=== PATIENT | male | born 1975 | race Caucasian/White ===

== ENCOUNTER 2022-03-31 14:55 | Observation (INO) | payer OTHER, SELFPAY ==
--- NOTE | 2022-03-31 | DI.ECHO.S_ITS ---
[facility] +---------+ : : [address] : [place] : : : : [id number] : : : : Phone: [phone]---------+ Echocardiogram Report + + :Name: ZHANG CRUZ Study Date: 04/01/2022 Height: 71 in : :[facility] ReadingLocation: Weight: 285 lb: : Gender: Male BSA: 2.5 m2 : :: 1975 Age: 46 yrs : :Reason For Study: Chest pain : :Ordering Physician: ROZ, : :SAMSON Performed By: Travis Bennett : :Referring: SAMSON COURTNEY : + + Interpretation Summary The ejection fraction is estimated to be 55-60%. Diastolic parameters suggest probable normal left ventricular diastolic function and normal filling pressures. The right ventricle is normal in size and function. No significant valvular abnormalities. Unable to estimate PASP. The ascending aorta is mildly enlarged. Procedure: A two-dimensional transthoracic echocardiogram with color flow and Doppler was performed. The study quality was technically adequate. There is no prior echocardiogram noted for this patient. The patient was in normal sinus rhythm during the exam. Left Ventricle: The left ventricle is normal in size and wall thickness. Left ventricular systolic function is normal. The ejection fraction is estimated to be 55-60%. There are no focal wall motion abnormalities. Diastolic parameters suggest probable normal left ventricular diastolic function and normal filling pressures. Right Ventricle: The right ventricle is normal in size and function. Atria: Both atria are normal in size. The interatrial septum grossly appears intact with no obvious evidence for an atrial septal defect. Mitral Valve: The mitral valve is normal in structure and function. There is no mitral regurgitation noted. Aortic Valve: The aortic valve is trileaflet. There is no aortic valve stenosis. No aortic regurgitation is present. Tricuspid Valve: The tricuspid valve is normal in structure and function. No tricuspid regurgitation. Pulmonary artery pressures cannot be estimated because of the lack of a measurable TR jet velocity. Pulmonic Valve: The pulmonic valve is normal in structure and function. There is no pulmonic valvular regurgitation. Great Vessels: The aortic root is normal size. The ascending aorta is mildly enlarged. The IVC is of normal diameter and collapses less than 50% with a sniff. This suggests a right atrial pressure of 8 mm Hg. Pericardium/ Pleura There is no pericardial effusion. There is no pleural effusion. MMode/2D Measurements & Calculations LVIDd: 5.2 cm LVOT diam: 2.5 cm LVIDs: 3.6 cm Ao root diam: 3.7 cm FS: 31.2 % asc Aorta Diam: 3.9 cm IVSd: 1.1 cm LVPWd: 0.85 cm LV fulton. diameter/BSA (cm/m^2): 2.1 LV sys. diameter/BSA (cm/m^2): 1.4 LA A2 area: 20.0 cm2 RA long axis: 5.5 cm LA A4 area: 17.8 cm2 RA area: 12.1 cm2 LA length (vol): 5.1 cm RA vol: 22.6 ml LA vol: 58.8 ml RA : 9.2 ml/m2 LA vol index: 24.0 ml/m2 TAPSE: 1.9 cm Doppler Measurements & Calculations Ao V2 max: 117.8 cm/sec LVOT Max Hao: 93.9 cm/sec Ao V2 mean: 84.5 cm/sec LV V1 max P.5 mmHg Ao max P.6 mmHg LV V1 VTI: 16.3 cm Ao mean P.1 mmHg ERIN(I,D): 3.6 cm2 Ao V2 VTI: 21.2 cm ERIN(V,D): 3.8 cm2 sev ratio: 0.77 ERIN indexed to BSA (cm^2/m^2): 1.5 MV E max hao: 69.9 cm/sec SV(LVOT): 77.2 ml MV A max hao: 59.5 cm/sec MV E/A: 1.2 Med Peak E' Hao: 8.8 cm/sec E/E' med: 8.0 Lat Peak E' Hao: 11.7 cm/sec E/E' lat: 6.0 E/e' average: 7.0 MV dec time: 0.19 sec Reading Physician:12:00 PM
[2022-03-31 15:06] VITALS: BP 147/89; PULSE 119; RESP 20; TEMP 36.5; O2SAT 95
--- NOTE | 2022-03-31 15:09 | DI.RAD.S_ITS ---
PROCEDURE: XR CHEST 1V INDICATIONS: chest pain TECHNIQUE: One view of the chest was acquired. COMPARISON: None. FINDINGS: Surgical changes and devices: None. Lungs and pleura: There are questionable pulmonary radiopacities in the right lower lung versus vascular crowding. The lungs are otherwise clear. No pleural effusion or pneumothorax. Mediastinum: Mediastinal contours appear normal. Heart size is normal. Bones and chest wall: No suspicious bony lesions. Overlying soft tissues appear unremarkable. IMPRESSION: Questionable right basilar radiopacities. Lateral view could be used to further characterize findings. Dictated by: Khushi Frank M.D. on 03/31/2022 at 15:35 Approved by: Khushi Frank M.D. on 03/31/2022 at 15:35
[2022-03-31 15:30] LABS: Add Manual Diff / Slide Review NO; Basophils Absolute Auto 0 /uL (0-100); Basophils Percent Auto 0.7 % (0-2); Eosinophils Absolute Auto 100 /uL (0-450); Eosinophils Percent Auto 2.1 % (2-4); Hematocrit 44.5 % (41-53); Hemoglobin 15.7 g/dL (13.5-17.5); Lymphocytes Absolute Auto 1400 /uL (1100-4500); Lymphocytes Percent Auto 26.6 % (25-40); Mean Corpuscular HGB Conc 35.2 % (30-36); Mean Corpuscular Hemoglobin 32.3 PG (26-34); Mean Corpuscular Volume 91.7 fL (80-100); Monocytes Absolute Auto 600 /uL (0-900); Monocytes Percent Auto 10.4 % (3-14); Neutrophils Absolute Auto 3200 /uL (1500-7000); Neutrophils Percent Auto 60.2 % (50-75); Platelet Count 115 X10^3/uL (150-400); Red Blood Cell Count 4.85 X10^6/uL (4.5-5.9); Red Cell Distribution Width 12.9 % (11.6-14.8); White Blood Cell Count 5.3 X10^3/uL (4.5-11.0)
[2022-03-31 16:46] LABS: Alanine Aminotransferase 40 IU/L (<50); Albumin 4.1 g/dL (3.5-5.0); Albumin Globulin Ratio 1.1 (1.0-2.8); Alkaline Phosphatase 145 U/L (38-126); Aspartate Aminotransferase 58 IU/L (17-59); Bilirubin Total 0.6 mg/dL (0.2-1.3); Blood Urea Nitrogen 19 mg/dL (9-20); Calcium 8.5 mg/dL (8.4-10.2); Carbon Dioxide 26 mmol/L (22-32); Chloride 101 mmol/L (98-107); Creatine Kinase 255 U/L (55-170); Estimated Glomerular Filt Rate > 60 mL/min (>60); Globulin 3.6 g/dL (1.7-4.1); Glucose 109 mg/dL (70-100); HEMOLYSIS 21 (0-50); Lipase 102 U/L (23-300); Magnesium 1.7 mg/dL (1.6-2.3); Sodium 135 mmol/L (137-145); Total Protein 7.7 g/dL (6.3-8.2)
[2022-03-31 16:51] LABS: Troponin I < 0.012 ng/mL (0.01-0.034)
[2022-03-31 17:00] LABS: NT-proBNP (BNP-Adult 18+) 55 pg/mL (<125)
[2022-03-31 17:01] LABS: CKMB % Relative Index 0.8 % (1.5-5.0)
[2022-03-31 17:03] VITALS: BP 141/97; PULSE 79; RESP 18; O2SAT 94
[2022-03-31 17:17] LABS: COVID19 -Nasal RAPID Negative (Negative)
[2022-03-31 18:26] LABS: Troponin I < 0.012 ng/mL (0.01-0.034)
[2022-03-31 19:02] LABS: Appearance Urine UA CLEAR; Bilirubin Urine UA NEGATIVE (NEGATIVE); Color Urine UA YELLOW; Glucose Urine UA NEGATIVE (Negative); Ketones Urine UA NEGATIVE (NEGATIVE); Leukocyte Esterase Urine UA NEGATIVE (NEGATIVE); Nitrite Urine UA NEGATIVE (Negative); Occult Blood Urine UA NEGATIVE (Negative); Protein Urine UA NEGATIVE (Negative); Urobilinogen Urine UA 0.2 E.U./dL (0.2); pH Urine UA 6.5 (4.5-8.0)
[2022-03-31 19:04] LABS: UR Morphine/Opiate cutoff 300 Negative (Negative); Ur Creatinine Normal (Normal); Ur Specific Gravity Normal (Normal); Urine Amphetamines Negative (Negative); Urine Barbiturates Negative (Negative); Urine Benzodiazepines Negative (Negative); Urine Cocaine Negative (Negative); Urine MDMA Negative (Negative); Urine Methadone Negative (Negative); Urine Methamphetamines Negative (Negative); Urine Oxycodone Negative (Negative); Urine Phencyclidine Negative (Negative); Urine Tetrahydrocannabinol Negative (Negative); Urine Tricyclic Antidepressant Negative (Negative); Urine pH Normal (Normal)
--- NOTE | 2022-03-31 19:10 | ED.CHESTPAIN ---
HPI - Chest Pain <Joel Paul MD - Last Filed: 04/01/22 06:21> General Chief Complaint: Chest Pain Stated Complaint: LIGHT HEADED SOB Time Seen by Provider: 03/31/22 16:33 Source: patient Mode of arrival: Ambulatory History of Present Illness HPI narrative: Patient here for a 2 hour episode of substernal pressure chest pain with sweating and nausea and shortness of breath at 1:30 a.m. today. Currently symptom-free. Patient states in the past year he is had 10 episodes of the same complaint but today was worse. He has never seen any provider for this. Never had cardiac workup. Episode today occurred while at rest. No recent illness. Related Data Home Medications Medication Instructions Recorded Confirmed telmisartan 40 mg tablet 40 mg PO DAILY 03/31/22 03/31/22 Previous Rx's Medication Instructions Recorded metoprolol succinate 25 mg 25 mg PO DAILY 30 days #30 tabs 04/01/22 tablet,extended release 24 hr Allergies Allergy/AdvReac Type Severity Reaction Status Date / Time No Known Drug Allergies Allergy Verified 03/31/22 15:08 Review of Systems <Joel Paul MD - Last Filed: 04/01/22 06:21> Review of Systems Narrative: GENERAL: Denies chills, fatigue, malaise, fever, sweats. HEENT: Denies sinus pain, ear pain, sore throat RESPIRATORY: Positive for dyspnea, negative for cough CARDIOVASCULAR: Positive for chest pain, negative for palpitations GASTROINTESTINAL: Positive for nausea, negative for vomiting, abdominal pain : Denies dysuria, frequency, hematuria MUSCULOSKELETAL: denies muscle or bony pain SKIN: Denies rash, skin lesions NEUROLOGIC: Denies weakness, numbness ROS Unobtainable: All systems reviewed & are unremarkable except as noted in HPI and below Patient History <Joel Paul MD - Last Filed: 04/01/22 06:21> Medical History Essential hypertension Surgical History No history of previous surgery Family History Mother Hypertension Father Diabetes type 2, uncontrolled Social History household members: spouse Smoking Status: Former smoker alcohol intake: current Smoking Status: Never smoker alcohol intake frequency: 3 or more drinks per day Exam <Joel Paul MD - Last Filed: 04/01/22 06:21> Narrative Exam Narrative: GENERAL: in no distress, not toxic not dyspneic HEAD: Normocephalic. EYES: Pupils equal round No scleral icterus. ENT: Mucous membranes moist. NECK: Trachea midline. CARDIOVASCULAR: Regular rate and rhythm without murmurs RESPIRATORY: Clear to auscultation. Breath sounds equal bilaterally. No wheezes, rales, or rhonchi. GASTROINTESTINAL: Abdomen soft, non-tender EXTREMITIES: No gross deformities. BACK: No flank tenderness. NEURO: AOx4. SKIN: Warm and dry PSYCH: Not anxious, is cooperative Initial Vital Signs Initial Vital Signs: Vital Signs Temperature 97.7 F 03/31/22 15:06 Pulse Rate 119 H 03/31/22 15:06 Respiratory Rate 20 03/31/22 15:06 Blood Pressure 147/89 H 03/31/22 15:06 Pulse Oximetry 95 03/31/22 15:06 Oxygen Delivery Method 03/31/22 15:06 <CONRAD Vallejo - Last Filed: 04/01/22 23:34> Initial Vital Signs Initial Vital Signs: Vital Signs Temperature 97.7 F 03/31/22 15:06 Pulse Rate 119 H 03/31/22 15:06 Respiratory Rate 20 03/31/22 15:06 Blood Pressure 147/89 H 03/31/22 15:06 Pulse Oximetry 95 03/31/22 15:06 Oxygen Delivery Method 03/31/22 15:06 Course <Joel Paul MD - Last Filed: 04/01/22 06:21> Course Course Narrative: Chest pain-free during course of stay Decision to Admit Date: 03/31/22 Decision to Admit time: 19:12 Orders Ordered: Discontinued Medications Acetaminophen (Acetaminophen 325 Mg Tablet) 650 mg PO Q6HR PRN PRN Reason: Fever/Mild Pain (1-3) Aspirin (Aspirin Ec 81 Mg Tablet) 324 mg PO NOW ONE Stop: 03/31/22 19:13 Last Admin: 03/31/22 19:16 Dose: 324 mg Documented By: ILDA Aspirin (Aspirin Ec 81 Mg Tablet) 81 mg PO DAILY [facility] Last Admin: 04/01/22 09:43 Dose: 81 mg Documented By: LOLITA Atorvastatin Calcium (Atorvastatin 20 Mg Tablet) 40 mg PO BEDTIME [facility] Enoxaparin Sodium (Enoxaparin 40 Mg/0.4 Ml Syringe) 40 mg SUBCUT DAILY [facility] Last Admin: 04/01/22 09:44 Dose: 40 mg Documented By: LOLITA Enoxaparin Sodium (Enoxaparin 40 Mg/0.4 Ml Syringe) 40 mg SUBCUT BID [facility] Morphine Sulfate (Morphine 2 Mg/Ml Inj) 2 mg IV Q5MIN PRN PRN Reason: Chest Pain Nitroglycerin (Nitroglycerin 0.4 Mg Sl Tab) 0.4 mg SL [id number] PRN PRN Reason: Chest Pain Ondansetron HCl (Ondansetron 4 Mg/2 Ml Inj) 4 mg IV Q8HR PRN PRN Reason: Nausea And Vomiting Potassium Chloride (Potassium Chloride 20 Meq Tab) 40 meq PO NOW ONE Stop: 04/01/22 10:01 Last Admin: 04/01/22 09:43 Dose: 40 meq Documented By: LOLITA Sodium Chloride (Sodium Chloride 0.9% Flush) 10 ml IV BID [facility] Last Admin: 04/01/22 09:44 Dose: 10 ml Documented By: LOLITA Reevaluation(s) Reevaluation #1: Chest pain-free at this time. Patient does agree for overnight stay and treadmill stress test echocardiogram in the morning Time: 19:13 Consultations Consultation #1: Spoke with Dr. Andre, cardiology. Recommends admission for treadmill stress test or nuclear stress test Time: 19:30 Consultation #2: Spoke with hospitalistRoselia, will admit for nuclear stress test Time: 19:57 Vital Signs Vital signs: Vital Signs - 8 hr 03/31/22 19:21 Pulse Rate 102 H Respiratory Rate 18 Blood Pressure 109/52 L Pulse Oximetry 97 Oxygen Delivery Method Room Air <CONRAD Vallejo - Last Filed: 04/01/22 23:34> Orders Ordered: Discontinued Medications Acetaminophen (Acetaminophen 325 Mg Tablet) 650 mg PO Q6HR PRN PRN Reason: Fever/Mild Pain (1-3) Aspirin (Aspirin Ec 81 Mg Tablet) 324 mg PO NOW ONE Stop: 03/31/22 19:13 Last Admin: 03/31/22 19:16 Dose: 324 mg Documented By: LIDA Aspirin (Aspirin Ec 81 Mg Tablet) 81 mg PO DAILY [facility] Last Admin: 04/01/22 09:43 Dose: 81 mg Documented By: LOLITA Atorvastatin Calcium (Atorvastatin 20 Mg Tablet) 40 mg PO BEDTIME [facility] Enoxaparin Sodium (Enoxaparin 40 Mg/0.4 Ml Syringe) 40 mg SUBCUT DAILY [facility] Last Admin: 04/01/22 09:44 Dose: 40 mg Documented By: LOLITA Enoxaparin Sodium (Enoxaparin 40 Mg/0.4 Ml Syringe) 40 mg SUBCUT BID [facility] Morphine Sulfate (Morphine 2 Mg/Ml Inj) 2 mg IV Q5MIN PRN PRN Reason: Chest Pain Nitroglycerin (Nitroglycerin 0.4 Mg Sl Tab) 0.4 mg SL [id number] PRN PRN Reason: Chest Pain Ondansetron HCl (Ondansetron 4 Mg/2 Ml Inj) 4 mg IV Q8HR PRN PRN Reason: Nausea And Vomiting Potassium Chloride (Potassium Chloride 20 Meq Tab) 40 meq PO NOW ONE Stop: 04/01/22 10:01 Last Admin: 04/01/22 09:43 Dose: 40 meq Documented By: LOLITA Sodium Chloride (Sodium Chloride 0.9% Flush) 10 ml IV BID [facility] Last Admin: 04/01/22 09:44 Dose: 10 ml Documented By: LOLITA Vital Signs Vital signs: Vital Signs - 8 hr 03/31/22 19:21 Pulse Rate 102 H Respiratory Rate 18 Blood Pressure 109/52 L Pulse Oximetry 97 Oxygen Delivery Method Room Air MDM - Chest Pain <Joel Paul MD - Last Filed: 04/01/22 06:21> Differential Diagnosis Differential diagnosis: Likely pneumothorax, stable angina, unstable angina pectoris, atypical chest pain, st elevation myocardial infarction and chest pain Lab Data Result diagrams: 04/01/22 03:08 04/01/22 03:08 Labs: Lab Results 03/31/22 03/31/22 03/31/22 Range/Units 15:21 15:21 15:21 WBC 5.3 (4.5-11.0) X10^3/uL RBC 4.85 (4.5-5.9) X10^6/uL Hgb 15.7 (13.5-17.5) g/dL Hct 44.5 (41-53) % MCV 91.7 (80-100) fL MCH 32.3 (26-34) PG MCHC 35.2 (30-36) % RDW 12.9 (11.6-14.8) % Plt Count 115 L (150-400) X10^3/uL Neut % (Auto) 60.2 (50-75) % Lymph % (Auto) 26.6 (25-40) % Russell % (Auto) 10.4 (3-14) % Eos % (Auto) 2.1 (2-4) % Baso % (Auto) 0.7 (0-2) % Neut # (Auto) 3200 (6121-8056) /uL Lymph # (Auto) 1400 (8997-1384) /uL Russell # (Auto) 600 (0-900) /uL Eos # (Auto) 100 (0-450) /uL Baso # (Auto) 0 (0-100) /uL Sodium 135 L (137-145) mmol/L Potassium 4.0 (3.4-5.1) mmol/L Chloride 101 (98-107) mmol/L Carbon Dioxide 26 (22-32) mmol/L BUN 19 (9-20) mg/dL Creatinine 0.95 (0.66-1.25) mg/dL Estimated GFR > 60 (>60) mL/min BUN/Creatinine Ratio 20.0 (6-22) Glucose 109 H (70-100) mg/dL Hemoglobin A1c (4.0-6.0) % Calcium 8.5 (8.4-10.2) mg/dL Magnesium 1.7 (1.6-2.3) mg/dL Total Bilirubin 0.6 (0.2-1.3) mg/dL AST 58 (17-59) IU/L ALT 40 (<50) IU/L Alkaline Phosphatase 145 H (38-126) U/L Total Creatine Kinase 255 H (55-170) U/L CK-MB (CK-2) 2.10 (<2.37) ng/mL CK-MB (CK-2) Rel Index 0.8 L (1.5-5.0) % Troponin I < 0.012 (0.01-0.034) ng/mL NT-Pro-B Natriuret Pep 55 (<125) pg/mL Total Protein 7.7 (6.3-8.2) g/dL Albumin 4.1 (3.5-5.0) g/dL Globulin 3.6 (1.7-4.1) g/dL Albumin/Globulin Ratio 1.1 (1.0-2.8) Lipase 102 (23-300) U/L Urine Color Urine Appearance Urine pH (4.5-8.0) Ur Specific [place] (1.000-1.035) Urine Protein (Negative) Urine Glucose (UA) (Negative) g/dL Urine Ketones (NEGATIVE) Urine Occult Blood (Negative) Urine Nitrate (Negative) Urine Bilirubin (NEGATIVE) Urine Urobilinogen (0.2) E.U./dL Ur Leukocyte Esterase (NEGATIVE) Urine RBC (0-5/HPF) Urine WBC (0-5/HPF) Urine Bacteria (None) Ur Culture Indicated? U Opiates 300ng/mL cut (Negative) Ur Oxycodone Screen (Negative) Urine Methadone Screen (Negative) Ur Barbiturates Screen (Negative) U Tricyclic Antidepress (Negative) Ur Phencyclidine Scrn (Negative) Ur Amphetamines Screen (Negative) U Methamphetamines Scrn (Negative) Ur MDMA Scrn (Ecstasy) (Negative) U Benzodiazepines Scrn (Negative) Urine Cocaine Screen (Negative) U Marijuana (THC) Screen (Negative) SARS-CoV-2 (PCR) (Negative) 03/31/22 03/31/22 03/31/22 Range/Units 15:21 16:49 17:30 WBC (4.5-11.0) X10^3/uL RBC (4.5-5.9) X10^6/uL Hgb (13.5-17.5) g/dL Hct (41-53) % MCV (80-100) fL MCH (26-34) PG MCHC (30-36) % RDW (11.6-14.8) % Plt Count (150-400) X10^3/uL Neut % (Auto) (50-75) % Lymph % (Auto) (25-40) % Russell % (Auto) (3-14) % Eos % (Auto) (2-4) % Baso % (Auto) (0-2) % Neut # (Auto) (5111-6630) /uL Lymph # (Auto) (1911-1498) /uL Russell # (Auto) (0-900) /uL Eos # (Auto) (0-450) /uL Baso # (Auto) (0-100) /uL Sodium (137-145) mmol/L Potassium (3.4-5.1) mmol/L Chloride (98-107) mmol/L Carbon Dioxide (22-32) mmol/L BUN (9-20) mg/dL Creatinine (0.66-1.25) mg/dL Estimated GFR (>60) mL/min BUN/Creatinine Ratio (6-22) Glucose (70-100) mg/dL Hemoglobin A1c 5.9 (4.0-6.0) % Calcium (8.4-10.2) mg/dL Magnesium (1.6-2.3) mg/dL Total Bilirubin (0.2-1.3) mg/dL AST (17-59) IU/L ALT (<50) IU/L Alkaline Phosphatase (38-126) U/L Total Creatine Kinase (55-170) U/L CK-MB (CK-2) (<2.37) ng/mL CK-MB (CK-2) Rel Index (1.5-5.0) % Troponin I < 0.012 (0.01-0.034) ng/mL NT-Pro-B Natriuret Pep (<125) pg/mL Total Protein (6.3-8.2) g/dL Albumin (3.5-5.0) g/dL Globulin (1.7-4.1) g/dL Albumin/Globulin Ratio (1.0-2.8) Lipase (23-300) U/L Urine Color Urine Appearance Urine pH (4.5-8.0) Ur Specific [place] (1.000-1.035) Urine Protein (Negative) Urine Glucose (UA) (Negative) g/dL Urine Ketones (NEGATIVE) Urine Occult Blood (Negative) Urine Nitrate (Negative) Urine Bilirubin (NEGATIVE) Urine Urobilinogen (0.2) E.U./dL Ur Leukocyte Esterase (NEGATIVE) Urine RBC (0-5/HPF) Urine WBC (0-5/HPF) Urine Bacteria (None) Ur Culture Indicated? U Opiates 300ng/mL cut (Negative) Ur Oxycodone Screen (Negative) Urine Methadone Screen (Negative) Ur Barbiturates Screen (Negative) U Tricyclic Antidepress (Negative) Ur Phencyclidine Scrn (Negative) Ur Amphetamines Screen (Negative) U Methamphetamines Scrn (Negative) Ur MDMA Scrn (Ecstasy) (Negative) U Benzodiazepines Scrn (Negative) Urine Cocaine Screen (Negative) U Marijuana (THC) Screen (Negative) SARS-CoV-2 (PCR) Negative (Negative) 03/31/22 03/31/22 Range/Units 18:50 18:50 WBC (4.5-11.0) X10^3/uL RBC (4.5-5.9) X10^6/uL Hgb (13.5-17.5) g/dL Hct (41-53) % MCV (80-100) fL MCH (26-34) PG MCHC (30-36) % RDW (11.6-14.8) % Plt Count (150-400) X10^3/uL Neut % (Auto) (50-75) % Lymph % (Auto) (25-40) % Russell % (Auto) (3-14) % Eos % (Auto) (2-4) % Baso % (Auto) (0-2) % Neut # (Auto) (5570-9872) /uL Lymph # (Auto) (7691-5289) /uL Russell # (Auto) (0-900) /uL Eos # (Auto) (0-450) /uL Baso # (Auto) (0-100) /uL Sodium (137-145) mmol/L Potassium (3.4-5.1) mmol/L Chloride (98-107) mmol/L Carbon Dioxide (22-32) mmol/L BUN (9-20) mg/dL Creatinine (0.66-1.25) mg/dL Estimated GFR (>60) mL/min BUN/Creatinine Ratio (6-22) Glucose (70-100) mg/dL Hemoglobin A1c (4.0-6.0) % Calcium (8.4-10.2) mg/dL Magnesium (1.6-2.3) mg/dL Total Bilirubin (0.2-1.3) mg/dL AST (17-59) IU/L ALT (<50) IU/L Alkaline Phosphatase (38-126) U/L Total Creatine Kinase (55-170) U/L CK-MB (CK-2) (<2.37) ng/mL CK-MB (CK-2) Rel Index (1.5-5.0) % Troponin I (0.01-0.034) ng/mL NT-Pro-B Natriuret Pep (<125) pg/mL Total Protein (6.3-8.2) g/dL Albumin (3.5-5.0) g/dL Globulin (1.7-4.1) g/dL Albumin/Globulin Ratio (1.0-2.8) Lipase (23-300) U/L Urine Color Yellow Urine Appearance Clear Urine pH 6.5 (4.5-8.0) Ur Specific [place] 1.020 (1.000-1.035) Urine Protein Negative (Negative) Urine Glucose (UA) Negative (Negative) g/dL Urine Ketones Negative (NEGATIVE) Urine Occult Blood Negative (Negative) Urine Nitrate Negative (Negative) Urine Bilirubin Negative (NEGATIVE) Urine Urobilinogen 0.2 (0.2) E.U./dL Ur Leukocyte Esterase Negative (NEGATIVE) Urine RBC None seen (0-5/HPF) Urine WBC None seen (0-5/HPF) Urine Bacteria None seen (None) Ur Culture Indicated? Cult not indicated U Opiates 300ng/mL cut Negative (Negative) Ur Oxycodone Screen Negative (Negative) Urine Methadone Screen Negative (Negative) Ur Barbiturates Screen Negative (Negative) U Tricyclic Antidepress Negative (Negative) Ur Phencyclidine Scrn Negative (Negative) Ur Amphetamines Screen Negative (Negative) U Methamphetamines Scrn Negative (Negative) Ur MDMA Scrn (Ecstasy) Negative (Negative) U Benzodiazepines Scrn Negative (Negative) Urine Cocaine Screen Negative (Negative) U Marijuana (THC) Screen Negative (Negative) SARS-CoV-2 (PCR) (Negative) Imaging Data Chest x-ray: Radiologist's Impression: [address] [address] XRay Report Signed Patient: Roberto Perla MR#: [id number] : 1975 Acct:[id number] Age/Sex: 46 / M Date of Service: 03/31/22 Loc: ED Accession Number: [id number] ?? Procedure: XR chest 1V Ordering Provider: Carmelita Irvin D.O. PROCEDURE:? XR CHEST 1V ? INDICATIONS:? chest pain ? TECHNIQUE:? One view of the chest was acquired.? ? COMPARISON:? None. ? FINDINGS:? ? Surgical changes and devices:? None.? ? Lungs and pleura:? There are questionable pulmonary radiopacities in the right lower lung versus vascular crowding.? The lungs are otherwise clear.? No pleural effusion or pneumothorax. ? Mediastinum:? Mediastinal contours appear normal.? Heart size is normal.? ? Bones and chest wall:? No suspicious bony lesions.? Overlying soft tissues appear unremarkable.? ? IMPRESSION:? Questionable right basilar radiopacities.? Lateral view could be used to further characterize findings. ? ? Dictated by: Khushi Frank M.D. on 03/31/2022 at 15:35 ? ? Approved by: Khushi Frank M.D. on 03/31/2022 at 15:35 ? ECG Data Interpretation: Sinus tachycardia rate 113. No ST elevation. MDM Narrative Medical decision making narrative: Appropriate for admission patient needs treadmill stress test echocardiogram. Tenth episode in 1 year. This occurred at rest. Had worsening symptoms today. Currently chest pain-free not tachycardic. <CONRAD Vallejo - Last Filed: 04/01/22 23:34> Lab Data Labs: Lab Results 03/31/22 03/31/22 03/31/22 Range/Units 15:21 15:21 15:21 WBC 5.3 (4.5-11.0) X10^3/uL RBC 4.85 (4.5-5.9) X10^6/uL Hgb 15.7 (13.5-17.5) g/dL Hct 44.5 (41-53) % MCV 91.7 (80-100) fL MCH 32.3 (26-34) PG MCHC 35.2 (30-36) % RDW 12.9 (11.6-14.8) % Plt Count 115 L (150-400) X10^3/uL Neut % (Auto) 60.2 (50-75) % Lymph % (Auto) 26.6 (25-40) % Russell % (Auto) 10.4 (3-14) % Eos % (Auto) 2.1 (2-4) % Baso % (Auto) 0.7 (0-2) % Neut # (Auto) 3200 (9625-2588) /uL Lymph # (Auto) 1400 (8728-8905) /uL Russell # (Auto) 600 (0-900) /uL Eos # (Auto) 100 (0-450) /uL Baso # (Auto) 0 (0-100) /uL Sodium 135 L (137-145) mmol/L Potassium 4.0 (3.4-5.1) mmol/L Chloride 101 (98-107) mmol/L Carbon Dioxide 26 (22-32) mmol/L BUN 19 (9-20) mg/dL Creatinine 0.95 (0.66-1.25) mg/dL Estimated GFR > 60 (>60) mL/min BUN/Creatinine Ratio 20.0 (6-22) Glucose 109 H (70-100) mg/dL Hemoglobin A1c (4.0-6.0) % Calcium 8.5 (8.4-10.2) mg/dL Magnesium 1.7 (1.6-2.3) mg/dL Total Bilirubin 0.6 (0.2-1.3) mg/dL AST 58 (17-59) IU/L ALT 40 (<50) IU/L Alkaline Phosphatase 145 H (38-126) U/L Total Creatine Kinase 255 H (55-170) U/L CK-MB (CK-2) 2.10 (<2.37) ng/mL CK-MB (CK-2) Rel Index 0.8 L (1.5-5.0) % Troponin I < 0.012 (0.01-0.034) ng/mL NT-Pro-B Natriuret Pep 55 (<125) pg/mL Total Protein 7.7 (6.3-8.2) g/dL Albumin 4.1 (3.5-5.0) g/dL Globulin 3.6 (1.7-4.1) g/dL Albumin/Globulin Ratio 1.1 (1.0-2.8) Lipase 102 (23-300) U/L Urine Color Urine Appearance Urine pH (4.5-8.0) Ur Specific [place] (1.000-1.035) Urine Protein (Negative) Urine Glucose (UA) (Negative) g/dL Urine Ketones (NEGATIVE) Urine Occult Blood (Negative) Urine Nitrate (Negative) Urine Bilirubin (NEGATIVE) Urine Urobilinogen (0.2) E.U./dL Ur Leukocyte Esterase (NEGATIVE) Urine RBC (0-5/HPF) Urine WBC (0-5/HPF) Urine Bacteria (None) Ur Culture Indicated? U Opiates 300ng/mL cut (Negative) Ur Oxycodone Screen (Negative) Urine Methadone Screen (Negative) Ur Barbiturates Screen (Negative) U Tricyclic Antidepress (Negative) Ur Phencyclidine Scrn (Negative) Ur Amphetamines Screen (Negative) U Methamphetamines Scrn (Negative) Ur MDMA Scrn (Ecstasy) (Negative) U Benzodiazepines Scrn (Negative) Urine Cocaine Screen (Negative) U Marijuana (THC) Screen (Negative) SARS-CoV-2 (PCR) (Negative) 03/31/22 03/31/22 03/31/22 Range/Units 15:21 16:49 17:30 WBC (4.5-11.0) X10^3/uL RBC (4.5-5.9) X10^6/uL Hgb (13.5-17.5) g/dL Hct (41-53) % MCV (80-100) fL MCH (26-34) PG MCHC (30-36) % RDW (11.6-14.8) % Plt Count (150-400) X10^3/uL Neut % (Auto) (50-75) % Lymph % (Auto) (25-40) % Russell % (Auto) (3-14) % Eos % (Auto) (2-4) % Baso % (Auto) (0-2) % Neut # (Auto) (1315-4648) /uL Lymph # (Auto) (6959-9129) /uL Russell # (Auto) (0-900) /uL Eos # (Auto) (0-450) /uL Baso # (Auto) (0-100) /uL Sodium (137-145) mmol/L Potassium (3.4-5.1) mmol/L Chloride (98-107) mmol/L Carbon Dioxide (22-32) mmol/L BUN (9-20) mg/dL Creatinine (0.66-1.25) mg/dL Estimated GFR (>60) mL/min BUN/Creatinine Ratio (6-22) Glucose (70-100) mg/dL Hemoglobin A1c 5.9 (4.0-6.0) % Calcium (8.4-10.2) mg/dL Magnesium (1.6-2.3) mg/dL Total Bilirubin (0.2-1.3) mg/dL AST (17-59) IU/L ALT (<50) IU/L Alkaline Phosphatase (38-126) U/L Total Creatine Kinase (55-170) U/L CK-MB (CK-2) (<2.37) ng/mL CK-MB (CK-2) Rel Index (1.5-5.0) % Troponin I < 0.012 (0.01-0.034) ng/mL NT-Pro-B Natriuret Pep (<125) pg/mL Total Protein (6.3-8.2) g/dL Albumin (3.5-5.0) g/dL Globulin (1.7-4.1) g/dL Albumin/Globulin Ratio (1.0-2.8) Lipase (23-300) U/L Urine Color Urine Appearance Urine pH (4.5-8.0) Ur Specific [place] (1.000-1.035) Urine Protein (Negative) Urine Glucose (UA) (Negative) g/dL Urine Ketones (NEGATIVE) Urine Occult Blood (Negative) Urine Nitrate (Negative) Urine Bilirubin (NEGATIVE) Urine Urobilinogen (0.2) E.U./dL Ur Leukocyte Esterase (NEGATIVE) Urine RBC (0-5/HPF) Urine WBC (0-5/HPF) Urine Bacteria (None) Ur Culture Indicated? U Opiates 300ng/mL cut (Negative) Ur Oxycodone Screen (Negative) Urine Methadone Screen (Negative) Ur Barbiturates Screen (Negative) U Tricyclic Antidepress (Negative) Ur Phencyclidine Scrn (Negative) Ur Amphetamines Screen (Negative) U Methamphetamines Scrn (Negative) Ur MDMA Scrn (Ecstasy) (Negative) U Benzodiazepines Scrn (Negative) Urine Cocaine Screen (Negative) U Marijuana (THC) Screen (Negative) SARS-CoV-2 (PCR) Negative (Negative) 03/31/22 03/31/22 Range/Units 18:50 18:50 WBC (4.5-11.0) X10^3/uL RBC (4.5-5.9) X10^6/uL Hgb (13.5-17.5) g/dL Hct (41-53) % MCV (80-100) fL MCH (26-34) PG MCHC (30-36) % RDW (11.6-14.8) % Plt Count (150-400) X10^3/uL Neut % (Auto) (50-75) % Lymph % (Auto) (25-40) % Russell % (Auto) (3-14) % Eos % (Auto) (2-4) % Baso % (Auto) (0-2) % Neut # (Auto) (3816-7320) /uL Lymph # (Auto) (1111-9284) /uL Russell # (Auto) (0-900) /uL Eos # (Auto) (0-450) /uL Baso # (Auto) (0-100) /uL Sodium (137-145) mmol/L Potassium (3.4-5.1) mmol/L Chloride (98-107) mmol/L Carbon Dioxide (22-32) mmol/L BUN (9-20) mg/dL Creatinine (0.66-1.25) mg/dL Estimated GFR (>60) mL/min BUN/Creatinine Ratio (6-22) Glucose (70-100) mg/dL Hemoglobin A1c (4.0-6.0) % Calcium (8.4-10.2) mg/dL Magnesium (1.6-2.3) mg/dL Total Bilirubin (0.2-1.3) mg/dL AST (17-59) IU/L ALT (<50) IU/L Alkaline Phosphatase (38-126) U/L Total Creatine Kinase (55-170) U/L CK-MB (CK-2) (<2.37) ng/mL CK-MB (CK-2) Rel Index (1.5-5.0) % Troponin I (0.01-0.034) ng/mL NT-Pro-B Natriuret Pep (<125) pg/mL Total Protein (6.3-8.2) g/dL Albumin (3.5-5.0) g/dL Globulin (1.7-4.1) g/dL Albumin/Globulin Ratio (1.0-2.8) Lipase (23-300) U/L Urine Color Yellow Urine Appearance Clear Urine pH 6.5 (4.5-8.0) Ur Specific [place] 1.020 (1.000-1.035) Urine Protein Negative (Negative) Urine Glucose (UA) Negative (Negative) g/dL Urine Ketones Negative (NEGATIVE) Urine Occult Blood Negative (Negative) Urine Nitrate Negative (Negative) Urine Bilirubin Negative (NEGATIVE) Urine Urobilinogen 0.2 (0.2) E.U./dL Ur Leukocyte Esterase Negative (NEGATIVE) Urine RBC None seen (0-5/HPF) Urine WBC None seen (0-5/HPF) Urine Bacteria None seen (None) Ur Culture Indicated? Cult not indicated U Opiates 300ng/mL cut Negative (Negative) Ur Oxycodone Screen Negative (Negative) Urine Methadone Screen Negative (Negative) Ur Barbiturates Screen Negative (Negative) U Tricyclic Antidepress Negative (Negative) Ur Phencyclidine Scrn Negative (Negative) Ur Amphetamines Screen Negative (Negative) U Methamphetamines Scrn Negative (Negative) Ur MDMA Scrn (Ecstasy) Negative (Negative) U Benzodiazepines Scrn Negative (Negative) Urine Cocaine Screen Negative (Negative) U Marijuana (THC) Screen Negative (Negative) SARS-CoV-2 (PCR) (Negative) Discharge Plan Departure Patient Disposition: Admitted as Observation Clinical Impression: Chest pain <CONRAD Vallejo - Last Filed: 04/01/22 23:34> Sign Out Provider Sign Out Attestation: Opened for signature in error.
[2022-03-31 19:14] LABS: Bacteria Urine None Seen; Culture Indicated Urine Cult Not Indicated; RBC Urine None Seen (0-5/HPF); WBC Urine None Seen (0-5/HPF)
[2022-03-31] MEDS: ASPIRIN EC 81 MG TABLET 324 MG PO (19:16)
[2022-03-31 19:21] VITALS: BP 109/52; PULSE 102; RESP 18; O2SAT 97
[2022-03-31 20:16] VITALS: BMI 39.7
[2022-03-31 20:26] VITALS: BP 137/77; PULSE 96; RESP 18; O2SAT 98
[2022-03-31 21:00] VITALS: BP 131/90; PULSE 90; RESP 18; TEMP 36.6; O2SAT 95
--- NOTE | 2022-03-31 21:22 | P.HP_ITS ---
History of Present Illness History of Present Illness Date Patient Seen: 03/31/22 Time Patient Seen: 21:05 Date of Onset of Symptoms: 03/31/22 Chief complaint: LIGHT HEADED SOB Narrative: Roberto Perla is a 46 y.o. non-smoking male currently being treated for hypertension, presented to the ED with a one day history of chest pressure, shortness of breath and lightheadedness. [place] and lasted for about 3+ hours. When he develops shortness of breath, he needs to stop what he is doing and go outside for fresh air. He states these symptoms started after he had his second COVID-19 Moderna vaccine. He has not received any boosters. He denies headaches, visual changes, difficulty swallowing, nausea vomiting, dysuria, diarrhea or constipation. Denies any upper or lower extremity neuropathies. Chest x-ray was nonconclusive question right basilar opacities. He is afebrile, blood pressure 131/90, heart rate 90, respiratory rate 18, oxygen saturation of 95% on room air he weighs 143 kg with a BMI of almost 40. Platelet count is 115, sodium 135, glucose 109, A1c is 5.9, his total creatinine kinase is elevated at 255, proBNP was 55, UA and urine toxicology are both negative and COVID 19 PCR is negative. Patient History Medical History (Updated 03/31/22 @ 23:04 by CONRAD Vallejo) Essential hypertension Surgical History No history of previous surgery Family & Social History Family History Mother Hypertension Father Diabetes type 2, uncontrolled Social History: household members spouse Prior Living Arrangements House Safety & Behavioral: Feels Safe in Current Yes Environment Been Physically Hurt or No Threatened By a Person Tobacco & Substance use: Smoking Status Former smoker alcohol intake current alcohol intake frequency 3 or more beers per day Substance Use Type does not use Meds Home Medications and Allergies Home Medications Medication Instructions Recorded Confirmed Type telmisartan 40 mg tablet 40 mg PO DAILY 03/31/22 03/31/22 History Allergies Allergy/AdvReac Type Severity Reaction Status Date / Time No Known Drug Allergies Allergy Verified 03/31/22 15:08 Review of Systems Review of Systems ROS: Yes All systems reviewed with the patient and are negative except as otherwise documented Exam Vital Signs (past 8 hours): - 03/31/22 15:06 03/31/22 17:03 03/31/22 19:21 Temperature 97.7 F Pulse Rate 119 H 79 102 H Respiratory Rate 20 18 18 Blood Pressure 147/89 H 141/97 H 109/52 L Pulse Oximetry 95 94 97 Oxygen Delivery Method Room Air Room Air Room Air 03/31/22 20:26 Temperature Pulse Rate 96 H Respiratory Rate 18 Blood Pressure 137/77 Pulse Oximetry 98 Oxygen Delivery Method Room Air Oxygen Delivery Method Room Air Narrative Exam Narrative: Gen: Alert, oriented, morbidly obese 46 y.o. male, NAD HEENT: normocephalic, atraumatic, conjunctiva clear, sclera non-icteric, oral mucosa pink and moist Neck: supple, full ROM, no JVD, trachea is midline Resp: Lungs CTA, non-labored breathing CV: RRR, no murmur or rubs Abd: soft, non-tender, normoactive BTs Skin: Heavily tattooed, no lesions or rashes, dry and intact Neuro: Alert and oriented X 4 w/no focal deficits. Speech clear and coherent. Extremities: moves all 4 extremities, is ambulatory, negative Jesse?s sign Psyche: normal mood and affect. Objective Labs Result Diagrams: 03/31/22 15:21 03/31/22 15:21 Labs: Laboratory Results - last 24 hr 03/31/22 03/31/22 03/31/22 15:21 15:21 15:21 WBC 5.3 RBC 4.85 Hgb 15.7 Hct 44.5 MCV 91.7 MCH 32.3 MCHC 35.2 RDW 12.9 Plt Count 115 L Neut % (Auto) 60.2 Lymph % (Auto) 26.6 [place] % (Auto) 10.4 Eos % (Auto) 2.1 Baso % (Auto) 0.7 Neut # (Auto) 3200 Lymph # (Auto) 1400 [place] # (Auto) 600 Eos # (Auto) 100 Baso # (Auto) 0 Sodium 135 L Potassium 4.0 Chloride 101 Carbon Dioxide 26 BUN 19 Creatinine 0.95 Estimated GFR > 60 BUN/Creatinine Ratio 20.0 Glucose 109 H Calcium 8.5 Magnesium 1.7 Total Bilirubin 0.6 AST 58 ALT 40 Alkaline Phosphatase 145 H Total Creatine Kinase 255 H CK-MB (CK-2) 2.10 CK-MB (CK-2) Rel Index 0.8 L Troponin I < 0.012 NT-Pro-B Natriuret Pep 55 Total Protein 7.7 Albumin 4.1 Globulin 3.6 Albumin/Globulin Ratio 1.1 Lipase 102 Urine Color Urine Appearance Urine pH Ur Specific [place] Urine Protein Urine Glucose (UA) Urine Ketones Urine Occult Blood Urine Nitrate Urine Bilirubin Urine Urobilinogen Ur Leukocyte Esterase Urine RBC Urine WBC Urine Bacteria Ur Culture Indicated? U Opiates 300ng/mL cut Ur Oxycodone Screen Urine Methadone Screen Ur Barbiturates Screen U Tricyclic Antidepress Ur Phencyclidine Scrn Ur Amphetamines Screen U Methamphetamines Scrn Ur MDMA Scrn (Ecstasy) U Benzodiazepines Scrn Urine Cocaine Screen U Marijuana (THC) Screen SARS-CoV-2 (PCR) 03/31/22 03/31/22 03/31/22 16:49 17:30 18:50 WBC RBC Hgb Hct MCV MCH MCHC RDW Plt Count Neut % (Auto) Lymph % (Auto) [place] % (Auto) Eos % (Auto) Baso % (Auto) Neut # (Auto) Lymph # (Auto) [place] # (Auto) Eos # (Auto) Baso # (Auto) Sodium Potassium Chloride Carbon Dioxide BUN Creatinine Estimated GFR BUN/Creatinine Ratio Glucose Calcium Magnesium Total Bilirubin AST ALT Alkaline Phosphatase Total Creatine Kinase CK-MB (CK-2) CK-MB (CK-2) Rel Index Troponin I < 0.012 NT-Pro-B Natriuret Pep Total Protein Albumin Globulin Albumin/Globulin Ratio Lipase Urine Color Urine Appearance Urine pH Ur Specific [place] Urine Protein Urine Glucose (UA) Urine Ketones Urine Occult Blood Urine Nitrate Urine Bilirubin Urine Urobilinogen Ur Leukocyte Esterase Urine RBC Urine WBC Urine Bacteria Ur Culture Indicated? U Opiates 300ng/mL cut Negative Ur Oxycodone Screen Negative Urine Methadone Screen Negative Ur Barbiturates Screen Negative U Tricyclic Antidepress Negative Ur Phencyclidine Scrn Negative Ur Amphetamines Screen Negative U Methamphetamines Scrn Negative Ur MDMA Scrn (Ecstasy) Negative U Benzodiazepines Scrn Negative Urine Cocaine Screen Negative U Marijuana (THC) Screen Negative SARS-CoV-2 (PCR) Negative 03/31/22 18:50 WBC RBC Hgb Hct MCV MCH MCHC RDW Plt Count Neut % (Auto) Lymph % (Auto) [place] % (Auto) Eos % (Auto) Baso % (Auto) Neut # (Auto) Lymph # (Auto) [place] # (Auto) Eos # (Auto) Baso # (Auto) Sodium Potassium Chloride Carbon Dioxide BUN Creatinine Estimated GFR BUN/Creatinine Ratio Glucose Calcium Magnesium Total Bilirubin AST ALT Alkaline Phosphatase Total Creatine Kinase CK-MB (CK-2) CK-MB (CK-2) Rel Index Troponin I NT-Pro-B Natriuret Pep Total Protein Albumin Globulin Albumin/Globulin Ratio Lipase Urine Color Yellow Urine Appearance Clear Urine pH 6.5 Ur Specific [place] 1.020 Urine Protein Negative Urine Glucose (UA) Negative Urine Ketones Negative Urine Occult Blood Negative Urine Nitrate Negative Urine Bilirubin Negative Urine Urobilinogen 0.2 Ur Leukocyte Esterase Negative Urine RBC None seen Urine WBC None seen Urine Bacteria None seen Ur Culture Indicated? 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 VTE Prophylaxis: Wells risk score 0 [X]Enoxaparin 40 mg subQ once daily X Bilateral SCDs Patient is placed into observation as his stay is not expected to exceed 2 midnights. FEN: IV fluids: saline lock, diet: heart healthy, labs: CBC, C/BMP, liver enzymes, Mag, PT/INR Consultants None Dispo: unknown at this time Code status: full code as discussed with the patient who identifies his spouse, Leda as his surrogate and POA. [X] I have utilized all available immediate resources to obtain, update, or review of the patient's current medications COVID-19 COVID-19 status: Negative Result date/Date tested (Pos, Neg/Pending): 03/31/22 Scores Wells' Criteria for PE Clinical signs and symptoms of DVT: No PE is #1 Dx or equally likely: No Heart rate > 100: No Immobilization at least 3 days or surg in previous 4 weeks: No History of PE or DVT: No Hemoptysis: No Malignancy w/Treatment within 6 months or palliative: No Wells' PE Score total: 0 Quality VTE Deep Vein Thrombosis/Pulmonary Embolism Present on Admission: No MIPS - Admit I confirm the patient?s Advance Care Plan is present, Code status is documented, Surrogate decision maker is in patient?s record [If Yes, STOP here]: No MIPS - DC The patient has current or prior documentation of left ventricular ejection fraction (LVEF) less than 40%, or moderate or severely depressed left ventricular systolic function.: No
[2022-03-31 21:39] LABS: Troponin I < 0.012 ng/mL (0.01-0.034)
[2022-03-31 22:12] LABS: Hemoglobin A1C% w Est Avg Glu 5.9 % (4.0-6.0)
[2022-04-01] VITALS (7 sets, daily range): BP systolic 104–147; BP diastolic 64–95; PULSE 72–88; RESP 17–18; TEMP 35.8–36.8; O2SAT 93–99
[2022-04-01 03:26] LABS: Add Manual Diff / Slide Review NO; Basophils Absolute Auto 100 /uL (0-100); Basophils Percent Auto 2.3 % (0-2); Eosinophils Absolute Auto 100 /uL (0-450); Eosinophils Percent Auto 3.2 % (2-4); Hematocrit 41.7 % (41-53); Hemoglobin 14.3 g/dL (13.5-17.5); Lymphocytes Absolute Auto 1500 /uL (1100-4500); Lymphocytes Percent Auto 34.3 % (25-40); Mean Corpuscular HGB Conc 34.3 % (30-36); Mean Corpuscular Hemoglobin 31.5 PG (26-34); Mean Corpuscular Volume 91.8 fL (80-100); Monocytes Absolute Auto 400 /uL (0-900); Monocytes Percent Auto 9.9 % (3-14); Neutrophils Absolute Auto 2100 /uL (1500-7000); Neutrophils Percent Auto 50.3 % (50-75); Platelet Count 103 X10^3/uL (150-400); Red Blood Cell Count 4.54 X10^6/uL (4.5-5.9); Red Cell Distribution Width 12.7 % (11.6-14.8); White Blood Cell Count 4.3 X10^3/uL (4.5-11.0)
[2022-04-01 03:45] LABS: BUN Creatinine Ratio 15.7 (6-22); Blood Urea Nitrogen 17 mg/dL (9-20); Calcium 8.4 mg/dL (8.4-10.2); Carbon Dioxide 29 mmol/L (22-32); Chloride 102 mmol/L (98-107); Cholesterol 166 mg/dL (140-199); Estimated Glomerular Filt Rate > 60 mL/min (>60); Glucose 109 mg/dL (70-100); HDL Cholesterol 53 mg/dL (40-60); HEMOLYSIS < 15 (0-50); LDL Cholesterol Calculated 48 mg/dL (<100); Magnesium 1.8 mg/dL (1.6-2.3); Potassium 3.5 mmol/L (3.4-5.1); Sodium 135 mmol/L (137-145); Triglycerides 324 mg/dL (35-150)
[2022-04-01 03:57] LABS: Troponin I < 0.012 ng/mL (0.01-0.034)
[2022-04-01] MEDS: ASPIRIN EC 81 MG TABLET PO (09:43)
[2022-04-01] MEDS: POTASSIUM CHLORIDE 20 MEQ TAB 40 MEQ PO (09:43)
[2022-04-01] MEDS: ENOXAPARIN 40 MG/0.4 ML SYRINGE SUBCUT (09:44)
[2022-04-01] MEDS: SODIUM CHLORIDE 0.9% FLUSH 10 ML IV (09:44)
--- NOTE | 2022-04-01 12:39 | CM.DANOTE ---
Patient is a 46 yo male who was admitted on 03/31/22 for SOB. Pt has [employer] for insurance and his PCP is at the [facility]. EMR was reviewed. Per MD, pt with hx of hypertension and admitted for chest pain r/o and to have 2 part stress test over two days and Echo. SW met briefly bedside and explained role and pt confirms he lives in [place] with his spouse and is independent at baseline and works at the [employer] and is now fully COVID vaccinated but no booster. Pt has a higher BMI and therefore test results needed prior to d/c. Pt does not anticipate any needs at d/c and is hopeful for d/c to home when stable and confirms spouse plans to provide transport. Pt denies any hx of HH or SNF. Plan: SW to follow for stress test and Echo results tomorrow to confirms safe d/c to home plan and any further identified discharge planning needs. MIKY Reynolds Discharge Planning/Care Management CM Discharge Assessment Start: 04/01/22 12:36 Freq: Status: Active Protocol: Document 04/01/22 12:36 BF (Rec: 04/01/22 12:39 BF [id number]) Discharge Planning Assessment Assigned Product Craftsman MIKY Martinez DPOA/Assigned Designee Name Spouse Leda Contact Information [phone] Advance Directives? No Advance Directives on File No History Provided By Patient,Medical Record Has Patient been admitted in last 30 No days? Prior Living Arrangements House Household Members spouse Type of transporation used prior to Drives own vehicle admit Independent with ADL's Yes Is patient alert and oriented? Yes Caregiver for Another No Barriers to Discharge No Discharge Plan Home Transportation Arrangement spouse to provide transport at d/c Referrals Initiated None needed Additional Comment Pending Echo and stress test results Whiteboard Updated in Patient Room with Yes name and ext. # of Product Craftsman Review Status In Process Please Provide Date Initial DC 04/01/22 Assessment Was Performed Next Review Type Continued Stay Review
--- NOTE | 2022-04-01 17:03 | PM.DS.1 ---
History of Present Illness History of Present Illness Date Patient Seen: 04/01/22 Chief complaint: LIGHT HEADED SOB Narrative: CONRAD Siddiqui: Roberto Perla is a 46 y.o. non-smoking male currently being treated for hypertension, presented to the ED with a one day history of chest pressure, shortness of breath and lightheadedness. [place] started and lasted for about 3+ hours. When he develops shortness of breath, he needs to stop what he is doing and go outside for fresh air. He states these symptoms started after he had his second COVID-19 Moderna vaccine. He has not received any boosters. He denies headaches, visual changes, difficulty swallowing, nausea vomiting, dysuria, diarrhea or constipation. Denies any upper or lower extremity neuropathies. Chest x-ray was nonconclusive question right basilar opacities. He is afebrile, blood pressure 131/90, heart rate 90, respiratory rate 18, oxygen saturation of 95% on room air he weighs 143 kg with a BMI of almost 40. Platelet count is 115, sodium 135, glucose 109, A1c is 5.9, his total creatinine kinase is elevated at 255, proBNP was 55, UA and urine toxicology are both negative and COVID 19 PCR is negative. Discharge Providers Provider Date of admission: 03/31/22 19:58 Discharge Date: 04/01/22 Discharge provider: Matthew Key DO Summary Hospital Course Discharge Diagnosis: Chest pain r/o ACS, acute, present on admission Palpitations Hypertension LEON Hospital Course: This is a 46-year-old male admitted for further evaluation of recurrent chest pain. Along with his chest pain he noted some lightheadedness, palpitations which his Apple watch alerted him to a fast heart rate multiple times. He underwent stress testing which was deemed low risk. EKG did show some T-wave inversions but no obvious signs of ischemia. Telemetry monitoring showed no acute events in the patient did not have recurrence of his symptoms during his stress testing. He did admit to cessation of his CPAP machine at home, as the unit had been recalled and he has been struggling with insurance to get a new one. Given his presentation, I recommend a Holter monitor as an outpatient, and given his mild hypertension he was started on metoprolol to see if this helps reduce the rate of his palpitations which seems to be most likely the cause of his symptoms. I recommended that he also try and expedite approval of his new CPAP machine, as his increase in frequency recently is likely related to his LEON. Exam Vital Signs (past 8 hours): - 04/01/22 12:00 04/01/22 16:00 Temperature 97.8 F 97.8 F Pulse Rate 82 86 Respiratory Rate 17 17 Blood Pressure 147/95 H 124/89 Pulse Oximetry 96 93 Oxygen Flow Rate 0 0 Oxygen Delivery Method Room Air Oxygen Flow Rate 0 Narrative Exam Narrative: General:? Patient is well developed and well nourished, in no distress at this time. HEENT:? Normocephalic, atraumatic, extraocular muscles intact, oral pharynx is clear and mucous membranes are moist. Neck: supple and symmetric, trachea is midline, no cervical adenopathy. Negative for JVD Chest:? Normal AP diameter and contour without kyphoscoliosis, no tachypnea, equal chest rise bilaterally. Lungs:? CTA b/l no wheezing rhonchi or rales. Cardio:?RRR no m/r/g. Abdomen: S NT ND. No CVA tenderness. Musculoskeletal:? Muscle strength and tone are equal within normal limits, no deformity. Extremities: No edema or joint effusions. No cyanosis or clubbing. Skin:? Pale,? Warm to touch,dry and intact without rashes, ulcerations or petechiae.? Neuro:? Alert and orientated x3,? sensation to touch intact in all extremities, no gross deficits noted of cranial nerves. Psych:? Patient has a well-kept appearance, appropriate affect, mental status attitude thought context and judgment are appropriate for age. Objective Labs Result Diagrams: 04/01/22 03:08 04/01/22 03:08 Labs: Laboratory Results - last 24 hr 03/31/22 03/31/22 03/31/22 15:21 16:49 17:30 WBC RBC Hgb Hct MCV MCH MCHC RDW Plt Count Neut % (Auto) Lymph % (Auto) [place] % (Auto) Eos % (Auto) Baso % (Auto) Neut # (Auto) Lymph # (Auto) [place] # (Auto) Eos # (Auto) Baso # (Auto) Sodium Potassium Chloride Carbon Dioxide BUN Creatinine Estimated GFR BUN/Creatinine Ratio Glucose Hemoglobin A1c 5.9 Calcium Magnesium Troponin I < 0.012 Triglycerides Cholesterol LDL Cholesterol, Calc HDL Cholesterol TSH Urine Color Urine Appearance Urine pH Ur Specific [place] Urine Protein Urine Glucose (UA) Urine Ketones Urine Occult Blood Urine Nitrate Urine Bilirubin Urine Urobilinogen Ur Leukocyte Esterase Urine RBC Urine WBC Urine Bacteria Ur Culture Indicated? U Opiates 300ng/mL cut Ur Oxycodone Screen Urine Methadone Screen Ur Barbiturates Screen U Tricyclic Antidepress Ur Phencyclidine Scrn Ur Amphetamines Screen U Methamphetamines Scrn Ur MDMA Scrn (Ecstasy) U Benzodiazepines Scrn Urine Cocaine Screen U Marijuana (THC) Screen SARS-CoV-2 (PCR) Negative 03/31/22 03/31/22 03/31/22 18:50 18:50 21:00 WBC RBC Hgb Hct MCV MCH MCHC RDW Plt Count Neut % (Auto) Lymph % (Auto) [place] % (Auto) Eos % (Auto) Baso % (Auto) Neut # (Auto) Lymph # (Auto) [place] # (Auto) Eos # (Auto) Baso # (Auto) Sodium Potassium Chloride Carbon Dioxide BUN Creatinine Estimated GFR BUN/Creatinine Ratio Glucose Hemoglobin A1c Calcium Magnesium Troponin I < 0.012 Triglycerides Cholesterol LDL Cholesterol, Calc HDL Cholesterol TSH Urine Color Yellow Urine Appearance Clear Urine pH 6.5 Ur Specific [place] 1.020 Urine Protein Negative Urine Glucose (UA) Negative Urine Ketones Negative Urine Occult Blood Negative Urine Nitrate Negative Urine Bilirubin Negative Urine Urobilinogen 0.2 Ur Leukocyte Esterase Negative Urine RBC None seen Urine WBC None seen Urine Bacteria None seen Ur Culture Indicated? Cult not indicated U Opiates 300ng/mL cut Negative Ur Oxycodone Screen Negative Urine Methadone Screen Negative Ur Barbiturates Screen Negative U Tricyclic Antidepress Negative Ur Phencyclidine Scrn Negative Ur Amphetamines Screen Negative U Methamphetamines Scrn Negative Ur MDMA Scrn (Ecstasy) Negative U Benzodiazepines Scrn Negative Urine Cocaine Screen Negative U Marijuana (THC) Screen Negative SARS-CoV-2 (PCR) 04/01/22 04/01/22 04/01/22 03:08 03:08 03:08 WBC 4.3 L RBC 4.54 Hgb 14.3 Hct 41.7 MCV 91.8 MCH 31.5 MCHC 34.3 RDW 12.7 Plt Count 103 L Neut % (Auto) 50.3 Lymph % (Auto) 34.3 [place] % (Auto) 9.9 Eos % (Auto) 3.2 Baso % (Auto) 2.3 H Neut # (Auto) 2100 Lymph # (Auto) 1500 [place] # (Auto) 400 Eos # (Auto) 100 Baso # (Auto) 100 Sodium 135 L Potassium 3.5 Chloride 102 Carbon Dioxide 29 BUN 17 Creatinine 1.08 Estimated GFR > 60 BUN/Creatinine Ratio 15.7 Glucose 109 H Hemoglobin A1c Calcium 8.4 Magnesium 1.8 Troponin I < 0.012 Triglycerides 324 H Cholesterol 166 LDL Cholesterol, Calc 48 HDL Cholesterol 53 TSH Urine Color Urine Appearance Urine pH Ur Specific [place] Urine Protein Urine Glucose (UA) Urine Ketones Urine Occult Blood Urine Nitrate Urine Bilirubin Urine Urobilinogen Ur Leukocyte Esterase Urine RBC Urine WBC Urine Bacteria Ur Culture Indicated? U Opiates 300ng/mL cut Ur Oxycodone Screen Urine Methadone Screen Ur Barbiturates Screen U Tricyclic Antidepress Ur Phencyclidine Scrn Ur Amphetamines Screen U Methamphetamines Scrn Ur MDMA Scrn (Ecstasy) U Benzodiazepines Scrn Urine Cocaine Screen U Marijuana (THC) Screen SARS-CoV-2 (PCR) 04/01/22 03:08 WBC RBC Hgb Hct MCV MCH MCHC RDW Plt Count Neut % (Auto) Lymph % (Auto) [place] % (Auto) Eos % (Auto) Baso % (Auto) Neut # (Auto) Lymph # (Auto) [place] # (Auto) Eos # (Auto) Baso # (Auto) Sodium Potassium Chloride Carbon Dioxide BUN Creatinine Estimated GFR BUN/Creatinine Ratio Glucose Hemoglobin A1c Calcium Magnesium Troponin I Triglycerides Cholesterol LDL Cholesterol, Calc HDL Cholesterol TSH 3.30 Urine Color Urine Appearance Urine pH Ur Specific [place] Urine Protein Urine Glucose (UA) Urine Ketones Urine Occult Blood Urine Nitrate Urine Bilirubin Urine Urobilinogen Ur Leukocyte Esterase Urine RBC Urine WBC Urine Bacteria Ur Culture Indicated? U Opiates 300ng/mL cut Ur Oxycodone Screen Urine Methadone Screen Ur Barbiturates Screen U Tricyclic Antidepress Ur Phencyclidine Scrn Ur Amphetamines Screen U Methamphetamines Scrn Ur MDMA Scrn (Ecstasy) U Benzodiazepines Scrn Urine Cocaine Screen U Marijuana (THC) Screen SARS-CoV-2 (PCR) [facility] Medical History Essential hypertension Surgical History No history of previous surgery Family History Mother Hypertension Father Diabetes type 2, uncontrolled Social History household members: spouse Smoking Status: Former smoker alcohol intake: current Discharge Plan Discharge Plan Patient Disposition: Home Provider Discharge Comment: You were admitted to the hospital with chest discomfort and palpitations. Stress testing was normal. I suspect an arrythmia. I am adding a medication to hopefully reduce the frequency, and I recommend you follow up to get CPAP machine approved as this can help improve a possible arrythmia as well. With your PCP, they may want to have a holter monitor placed. [place] Discharge orders & Medications Prescriptions: New metoprolol succinate 25 mg tablet extended release 24 hr 25 mg PO DAILY 30 Days Qty: 30 0RF Continued telmisartan 40 mg tablet 40 mg PO DAILY Diet/Activity/Treatments Diet: Diet as Tolerated Activity: As tolerated Visit Report/Discharge Packet Instructions: DI for Chest Pain Discharge Data Attending Provider: Ana Delgado Quality VTE Deep Vein Thrombosis/Pulmonary Embolism Present on Admission: No
--- NOTE | 2022-04-01 17:31 | PC.NURSE ---
Pt A&OX3, VSS, afebrile on RA. NSR on telemetry.He denies any CP, SOB, palpitations or dizziness. He completes stress test and echo today. This evening MD at bedside reviewing results and discussing discharge plan and clearing patient to discharge home. He and his at bedside verbalize understanding of discharge medications, worsening symptoms and follow up care. He is escorted to private vehicle for discharge home this evening with all of his belongings.
--- NOTE | 2022-04-01 19:14 | DI.NM.S_ITS ---
DATE OF SERVICE: 04/01/2022 PROCEDURE: Exercise perfusion study. INDICATION: Chest pressure, hypertension, underlying shortness of breath. RADIOPHARMACEUTICAL: 26.8 millicurie technetium-99m Myoview IV was injected at stress. Please note ,this is an exercise stress perfusion study only. CARDIAC STRESS: The patient walked on Eliseo protocol for 8 minutes and achieved a maximum heart rate of 155, which was 88 percent of target heart rate. Baseline blood pressure 140/90 mmHg. Peak blood pressure 172/100 mmHg. Baseline rhythm was sinus. During stress, some nonspecific ST changes without any convincing ischemic changes. At peak exercise and early recovery, there were some artifacts. No significant sustained arrhythmias seen. The patient denies any chest discomfort, however, had shortness of breath. The patient achieved 10.1 METs of workload and ZEB of positive 29 percent. RAW DATA: There is increased subdiaphragmatic activity. The patient's weight is 315 pounds. GATED STUDY: Stress LV ejection fraction is 72 percent without any significant wall motion abnormalities. Stress end-diastolic volume 136 mL. MYOCARDIAL PERFUSION SCAN: Stress supine and stress prone images were compared to each other. Stress supine images revealed a small to moderate size, mildly decreased perfusion of distal anterior wall and distal anteroseptum, which got improved during stress prone images, suggestive of tissue attenuation artifact. During the stress prone images, no perfusion defects seen. CONCLUSION: I will call this study likely a normal myocardial perfusion study with evidence of tissue attenuation artifact, which improved during stress prone images. Diminished exercise tolerance. Hypertensive blood pressure response. No convincing ischemic electrocardiographic changes. No significant sustained arrhythmias, other than occasional premature atrial contractions. No chest discomfort. The patient had shortness of breath. The patient's weight is 315 pounds. Overall low-risk myocardial perfusion scan. Roberto Perla - ARIANNA/la/grey doc#: [id number]/job#: [id number] dd: 04/01/2022 16:47:00 dt: 04/01/2022 19:02:00 DICTATING /COPIES TO: Kwesi Sawyer MD COPIES MNE: NIGHAT;
== END 2022-04-01 17:40 | disposition home or self-care (01) ==
LOC: ED 19:15 → AC 19:59
PROVIDERS: Emergency Medicine; Admitting Provider Nurse Practitioner Family; Emergency Provider Emergency Medicine; Visit Provider Nurse Practitioner Family
DX: R00.2 Palpitations (principal); R07.9 Chest pain, unspecified; R06.02 Shortness of breath; I10 Essential (primary) hypertension; R42 Dizziness and giddiness; G47.33 Obstructive sleep apnea (adult) (pediatric); Z20.822 Contact with and (suspected) exposure to COVID-19
CPT/HCPCS: 36415; 71045; 78451; 80048; 80053; 80061; 80305; 81001; 82550; 82553; 83036; 83690; 83735; 83880; 84443; 84484; 85025; 87635; 93005; 93010; 93017; 93306; 96372; 99284; C9803; G0378; A9502; J1650